=== PATIENT | female | born 1965 | race Caucasian/White ===

== ENCOUNTER 2020-09-04 06:58 | Day surgery (SDC) | payer BC, SELFPAY ==
[~2020-09-04] VITALS: Ht 172.7 cm; Wt 80.7 kg
[2020-09-04] MEDS ORDERED: ONDANSETRON HCL 4 MG/2 ML VIAL IVP PRN (08:00)
[2020-09-04] MEDS ORDERED: fentaNYL CITRATE/PF 100 MCG/2 ML AMP IVP PRN ×2 (08:00)
[2020-09-04] MEDS ORDERED: fentaNYL CITRATE/PF 100 MCG/2 ML AMP ONE (09:31)
[2020-09-04 10:10] VITALS: BP_SYST 138
== END 2020-09-05 23:14 | disposition home or self-care (01) ==
LOC: SDS 06:58 → SMU 06:58 → SDS 09-05 23:14
PROVIDERS: ATTEND Orthopaedic Surgery
DX: M67.432 Ganglion, left wrist (principal); I10 Essential (primary) hypertension; G43.909 Migraine, unspecified, not intractable, without status migrainosus; Z79.899 Other long term (current) drug therapy
CPT/HCPCS: 25111; 88304; J3010; J7120